=== PATIENT | female | born 1930 | race Caucasian/White ===

== ENCOUNTER 2017-01-26 12:26 | Emergency (ER) | payer MEDICARE ==
--- NOTE | 2017-01-26 13:57 | EDM.PDOC ---
[id number] 4d HIGH BLOOD PRESSURE Time Seen by Provider: 01/26/17 13:30 Source of Information: Reports: Patient, Family History Limitations: Reports: No Limitations - History of Present Illness INITIAL COMMENTS - FREE TEXT/NARRATIVE: 86-year-old female sent over from the clinic with some vague chest pressure, hypertension and noncompliance. She is a new patient to the clinic, her blood pressure is running around 200 systolic. She was sent over to the emergency room for some baseline lab and if that is okay she can recheck in the clinic in 3 days. She looks very stable but her first blood pressure was 190/100. No shortness of breath, oxygen saturations are normal. She does have an occasional cough. Onset: Gradual Severity: Mild Associated Symptoms: Reports: Chest Pain (Mild intermittent discomfort, brief sharp pains in the epigastric area), Cough, Shortness of Breath. Denies: Nausea /Vomiting - Related Data Allergies Allergy/AdvReac Type Severity Reaction Status Date / Time No Known Allergies Allergy Verified 01/26/17 13:23 Home Meds: Home Meds NK [No Known Home Meds] 06/20/15 [History] Past Medical History HEENT History: Reports: Impaired Vision Cardiovascular History: Reports: Hypertension Respiratory History: Reports: Asthma [employer] CONS[employer]ANT History: Reports: Social & Family History - Tobacco Use Smoking Status *Q: Never Smoker Used Tobacco, but Quit: Yes Month Tobacco Last Used: 0 Second Hand Smoke Exposure: Yes - Recreational Drug Use Recreational Drug Use: No ED ROS GENERAL - Review of Systems Review Of Systems: See Below Constitutional: Denies: Fever, Chills HEENT: Denies: No Symptoms Respiratory: Reports: Shortness of Breath, Cough Cardiovascular: Reports: Chest Pain. Denies: Palpitations GI/Abdominal: Reports: Abdominal Pain (Epigastric area intermittent and brief pains that are sharp) : Reports: No Symptoms Skin: Reports: No Symptoms ED EXAM, GENERAL - Physical Exam Exam: See Below Exam Limited By: No Limitations General Appearance: Alert, No Apparent Distress Head: Atraumatic Respiratory/Chest: No Respiratory Distress, Lungs Clear Cardiovascular: Regular Rate, Rhythm GI/Abdominal: Soft, Non-Tender Neurological: Alert, Oriented Psychiatric: Normal Affect, Normal Mood Skin Exam: Warm, Dry EKG INTERPRETATION Rhythm: NSR Course - Vital Signs Last Recorded V/S: Last Vital Signs Temp 97.2 F 01/26/17 13:21 Pulse 85 01/26/17 15:07 Resp 18 01/26/17 13:21 BP 133/62 01/26/17 15:07 Pulse Ox 95 01/26/17 13:21 - Orders/Labs/Meds Labs: Laboratory Tests 01/26/17 01/26/17 Range/Units 13:52 13:52 WBC 9.5 (4.5-11.0) K/uL RBC 4.17 (3.30-5.50) M/uL Hgb 12.9 (12.0-15.0) g/dL Hct 40.3 (36.0-48.0) % MCV 97 (80-98) fL MCH 31 (27-31) pg MCHC 32 (32-36) % Plt Count 264 (150-400) K/uL Neut % (Auto) 60 (36-66) % Lymph % (Auto) 24 (24-44) % [place] % (Auto) 9 H (2-6) % Eos % (Auto) 6 H (2-4) % Baso % (Auto) 1 (0-1) % Sodium 137 L (140-148) mmol/L Potassium 4.2 (3.6-5.2) mmol/L Chloride 100 (100-108) mmol/L Carbon Dioxide 33 H (21-32) mmol/L Anion Gap 8.2 (5.0-14.0) mmol/L BUN 12 (7-18) mg/dL Creatinine 1.3 H (0.6-1.0) mg/dL Est Cr Clr Drug Dosing 25.70 mL/min Estimated GFR (MDRD) 39 L (>60) Glucose 149 H (74-106) mg/dL Calcium 8.9 (8.5-10.1) mg/dL Total Bilirubin 0.8 (0.2-1.0) mg/dL AST 13 L (15-37) U/L ALT 17 (12-78) U/L Alkaline Phosphatase 98 (46-116) U/L Troponin I < 0.017 (0.000-0.056) ng/mL Total Protein 7.9 (6.4-8.2) g/dL Albumin 3.5 (3.4-5.0) g/dL Globulin 4.4 H (2.3-3.5) g/dL Albumin/Globulin Ratio 0.8 L (1.2-2.2) Meds: Medications Discontinued Medications Generic Name Dose Route Start Last Admin Trade Name Nikki PRN Reason Stop Dose Admin Metoprolol Tartrate 50 mg 01/26/17 14:30 01/26/17 14:43 Lopressor PO 01/26/17 14:31 50 mg ONETIME ONE Administration Nitroglycerin 0.4 mg 01/26/17 14:30 01/26/17 14:44 Nitrostat SL 01/26/17 14:31 0.4 mg ONETIME ONE Administration - Re-Assessments/Exams Free Text/Narrative Re-Assessment/Exam: 01/26/17 14:43 EKG from the clinic was reviewed that showed normal sinus rhythm, a CBC CMP and troponin were added. These returned very reassuring, troponin was 0, CBC normal and the CMP revealing only mild renal insufficiency. Patient was given 25 mg of Lopressor and 1 sublingual nitroglycerin to decrease her blood pressure below 180 systolic and will be started on chlorthalidone 25 mg daily and was given one month's supply. She will see Dr. Gustafson in 3 Days. 01/26/17 14:56 On discharge the patient's blood pressure was 133/62. Departure - Departure Time of Disposition: 15:12 Disposition: Home, Self-Care 01 Condition: Good Clinical Impression: Atypical chest pain Hypertension Qualifiers: Hypertension type: essential hypertension Qualified Code(s): I10 - Essential ( primary) hypertension - Discharge Information Instructions: Nonspecific Chest Pain, Hypertension, [id number] Referrals: PCP,None [Primary Care Provider] - Forms: ED Department Discharge Care Plan Goals: Take chlorthalidone once daily as directed, starting today. Recheck with Dr. Gustafson Wednesday. Call the clinic tomorrow to let them know you are planning on coming, they will tell you what time. Return sooner if worsening or concerns.
--- NOTE | 2017-01-26 14:21 | CR ---
Chest 2V HISTORY: dyspnea COMPARISON: 06/20/2015 FINDINGS: Lungs appear clear and normally aerated. Borderline cardiomegaly is stable. Epicardial fat and can b e seen at the right cardiophrenic angle. No vascular redistribution or pleural fluid can be seen. Jan ny structures and soft tissues are unremarkable. IMPRESSION: Borderline cardiomegaly without evidence for decompensation. No acute chest abnormality or significa nt interval change is identified.
[2017-01-26] MEDS ORDERED: Nitroglycerin 0.4 MG Tab.SL SL ONE (14:30)
[2017-01-26] MEDS ORDERED: Metoprolol Tartrate 50 MG Tab PO ONE (14:30)
[2017-01-26 15:07] VITALS: BP 133/62
== END 2017-01-26 15:12 | disposition home or self-care (01) ==
LOC: JP.ED 12:26
DX: R07.89 Other chest pain (principal); I10 Essential (primary) hypertension; J45.909 Unspecified asthma, uncomplicated
CPT/HCPCS: 36415; 71020; 80053; 84484; 85025; 99284; A9270

== ENCOUNTER 2018-11-07 11:32 | Emergency (ER) | payer MEDICARE ==
[2018-11-07] MEDS ORDERED: Sodium Chloride 0.9% 10 ML Syringe FLUSH PRN (11:48)
[2018-11-07 11:51] VITALS: BP 153/58
--- NOTE | 2018-11-07 11:55 | EDM.PDOC ---
ED HPI GENERAL MEDICAL PROBLEM - General Chief Complaint: Neurological Problem Stated Complaint: INPROGESS OF STRESS TEST SENT TO ER Time Seen by Provider: 11/07/18 11:40 Source of Information: Reports: Family, RN History Limitations: Reports: Uncooperative - History of Present Illness INITIAL COMMENTS - FREE TEXT/NARRATIVE: Simona is an 88 year old female, presents to the ED today from cardiac clinic after having neurological complaints during her stress test. Patient c/o blurry vision twice during preparation. Patient then would not speak when she had been speaking the entire time prior. Patient had a right facial droop per RN. Patient arrives here with droopy right eyelid, daughter states that is not new for patient. Patient denies pain other than the back of her head where she reported she fell a couple of days ago, daughter whom patient lives with states this is not accurate either. Patient is speaking sentences on arrival. Patient reported to be hypertensive initially at cardiology clinic, this seems to have stabilized here. Patient's IV did infiltrate with Lexiscan administration. I spoke with patient's daughter at length that reports patient has a hx of drinking ETOH/abuse for many years with strong mental health hx, shock therapy years ago, it is not unusual for patient to fake symptoms per her daughter to get attention, most often this happens when patient leaves the house. Onset: Today, Sudden - Related Data Allergies Allergy/AdvReac Type Severity Reaction Status Date / Time No Known Allergies Allergy Verified 11/07/18 11:57 Home Meds: Home Meds Albuterol Sulfate [Proair Hfa] 1 - 2 puff INH Q4HR PRN 11/04/18 [History] Aspirin [Halfprin] 81 mg PO DAILY 11/04/18 [History] Carvedilol 1 tab PO BID 11/04/18 [History] Chlorthalidone 25 mg PO DAILY 11/04/18 [History] amLODIPine Besylate [Amlodipine Besylate] 5 mg PO BID 11/04/18 [History] atorvaSTATin Calcium [Lipitor] 20 mg PO DAILY 11/04/18 [History] Past Medical History HEENT History: Reports: Impaired Vision Cardiovascular History: Reports: Hypertension Respiratory History: Reports: Asthma [employer] History: Reports: ED ROS GENERAL - Review of Systems Review Of Systems: Unable To Obtain ED EXAM, NEURO - Physical Exam Exam: See Below Exam Limited By: Uncooperative General Appearance: Alert, WD/WN, No Apparent Distress Eye Exam: Bilateral Eye: EOMI, PERRL Nose: Normal Inspection Throat/Mouth: Normal Oropharynx Head Exam: Atraumatic Neck: Normal Inspection, Supple, Non-Tender Respiratory/Chest: No Respiratory Distress, Lungs Clear, Normal Breath Sounds Cardiovascular: Normal Peripheral Pulses, Regular Rate, Rhythm, No Murmur GI/Abdominal: Normal Bowel Sounds, Soft, Non-Tender, Hernia (brynn-umbilical, easily reducible soft) Neurological: Alert, Other (smile intact, EOM's intact, strength to UE's equal, no arm drift, patient states she cannot move right leg off of bed, however right plantarflexion strength intact.) DTR: 2+: Patella (R), Patella (L) Extremities: Normal Inspection Psychiatric: Depressed Mood, Other (When asked to smile, "what is there to smile about"?) Skin Exam: Warm, Dry, Other (areas of scabs from patient picking her age spots ( per daughter)) Course - Vital Signs Last Recorded V/S: Last Vital Signs Temp 37.1 C 11/07/18 11:39 Pulse 86 11/07/18 11:39 Resp 16 11/07/18 11:39 BP 153/58 H 11/07/18 11:39 Pulse Ox 95 11/07/18 11:39 Simona is an 88 year old female hx of early stages of Alzheimers who presents today from stress test for concerns of stroke type symptoms. Please refer to HPI and focused exam. Patient arrives here hemodynamically stable and afebrile. She is not in any acute distress, no neuro focal deficits on exam, patient states she can't move right leg off of the bed however a few minutes later she lifted right leg and crossed it over her left leg with no problem at all. Blood work today shows a normal white count and stable HGB. Panel returns with elevated Creatinine and BUN, patient was given a 500 ml bolus of NS. Troponin undetectable. CT scan of head is essentially degraded by motion artificact with questionable ill defnied foci of decreased attenuation in the superior right frontal lobe which may be related to regional artifact with no other significant findings. Given that patient's symptoms initially were right sided it is unlikely that this is an acute pathological finding. [id number] went to speak with patient, she is alert and oriented, she got up and ambulated to the bathroom with stand by assist, she moved all 4 extremities without no difficulty, she offers no complaints. Patient was given a lunch tray which she at well and I feel at this time she is stable to be discharged back home with her daughter. Given daughter's hx of patient this may have been an act on patient's behalf which given her behavior here is most likely. TIA is on the differential although I feel this is less likely. Patient has no infectious etiology or concerns on exam. I would like patient to stay well hydrated and follow up with her PCP later this week to have her kidney function rechecked as well as touch base with ordering provider of stress test to discuss moving forward with regard to that. Reasons to return to the ED were discussed with patient and daughter, they are agreeable to plan of care and patient was discharged in stable condition with her daughter driving. - Orders/Labs/Meds Orders: Active Orders 24 hr Category Date Time Status Peripheral IV Care [RC] . DIRECTED Care 11/07/18 11:48 Active Sodium Chloride 0.9% [Normal Saline] 1,000 ml Med 11/07/18 13:39 Active IV .BOLUS Sodium Chloride 0.9% [Saline Flush] Med 11/07/18 11:48 Active 10 ml FLUSH ASDIRECTED PRN Peripheral IV Insertion Adult [OM.PC] Routine Oth 11/07/18 11:48 Ordered Medication Orders Sodium Chloride (Normal Saline) 1,000 mls @ 500 mls/hr IV .BOLUS ONE Stop: 11/07/18 15:38 Sodium Chloride (Saline Flush) 10 ml FLUSH ASDIRECTED PRN PRN Reason: Keep Vein Open Last Admin: 11/07/18 11:54 Dose: 10 ml Labs: Laboratory Tests 11/07/18 11/07/18 Range/Units 12:00 12:00 WBC 8.8 (4.5-11.0) K/uL RBC 3.81 (3.30-5.50) M/uL Hgb 12.0 (12.0-15.0) g/dL Hct 37.4 (36.0-48.0) % MCV 98 (80-98) fL MCH 32 H (27-31) pg MCHC 32 (32-36) % Plt Count 210 (150-400) K/uL Neut % (Auto) 56 (36-66) % Lymph % (Auto) 29 (24-44) % [place] % (Auto) 10 H (2-6) % Eos % (Auto) 4 (2-4) % Baso % (Auto) 1 (0-1) % Sodium 138 L (140-148) mmol/L Potassium 4.7 (3.6-5.2) mmol/L Chloride 100 (100-108) mmol/L Carbon Dioxide 32 (21-32) mmol/L Anion Gap 10.7 (5.0-14.0) mmol/L BUN 24 H D (7-18) mg/dL Creatinine 1.5 H (0.6-1.0) mg/dL Est Cr Clr Drug Dosing 21.44 mL/min Estimated GFR (MDRD) 33 L (>60) Glucose 124 H (74-106) mg/dL Calcium 9.4 (8.5-10.1) mg/dL Total Bilirubin 1.0 (0.2-1.0) mg/dL AST 16 (15-37) U/L ALT 20 (12-78) U/L Alkaline Phosphatase 116 (46-116) U/L Troponin I < 0.017 (0.000-0.056) ng/mL Total Protein 7.8 (6.4-8.2) g/dL Albumin 3.7 (3.4-5.0) g/dL Globulin 4.1 H (2.3-3.5) g/dL Albumin/Globulin Ratio 0.9 L (1.2-2.2) Meds: Medications Generic Name Dose Route Start Last Admin Trade Name Freq PRN Reason Stop Dose Admin Sodium Chloride 1,000 mls @ 500 mls/hr 11/07/18 13:39 Normal Saline IV 11/07/18 15:38 .BOLUS ONE Sodium Chloride 10 ml 11/07/18 11:48 11/07/18 11:54 Saline Flush FLUSH 10 ml ASDIRECTED PRN Administration Keep Vein Open Departure - Departure Time of Disposition: 14:30 Disposition: Home, Self-Care 01 Condition: Fair Clinical Impression: Feared condition not demonstrated, Elevated serum creatinine, Dehydration - Discharge Information Instructions: Dehydration, Adult, [id number] Referrals: Angel Rojas DIRECTOR OF CONSERVATION [Primary Care Provider] - Forms: ED Department Discharge Additional Instructions: Keep well hydrated Follow up in clinic for recheck of kidney function next week sometime. Touch base with provider who ordered the stress today for further instruction - My Orders Last 24 Hours: My Active Orders 11/07/18 11:48 Peripheral IV Care [RC] . DIRECTED Sodium Chloride 0.9% [Saline Flush] 10 ml FLUSH ASDIRECTED PRN Peripheral IV Insertion Adult [OM.PC] Routine 11/07/18 13:39 Sodium Chloride 0.9% [Normal Saline] 1,000 ml IV .BOLUS - Assessment/Plan Last 24 Hours: My Active Orders 11/07/18 11:48 Peripheral IV Care [RC] . DIRECTED Sodium Chloride 0.9% [Saline Flush] 10 ml FLUSH ASDIRECTED PRN Peripheral IV Insertion Adult [OM.PC] Routine 11/07/18 13:39 Sodium Chloride 0.9% [Normal Saline] 1,000 ml IV .BOLUS
--- NOTE | 2018-11-07 13:15 | CRLCT ---
INDICATION: Stroke protocol TECHNIQUE: CT head without contrast. COMPARISON: None available FINDINGS: The study is degraded by motion artifact. There is age-related cortical atrophy with proportionate ventriculomegaly. There is no mass effect or midline shift. White matter hypodensities are suggestive of chronic small vessel ischemic changes. Apparent ill-defined foci of decreased attenuation in the superior right frontal lobe may be related to regional artifact. Otherwise, there is no gross loss of hunter-white differentiation. There is no definite evidence of a gross acute intracranial hemorrhage, given the limitations. No acute calvarial fracture is seen. Mild paranasal sinus mucosal thickening is noted. There is apparent opacification of few left mastoid air cells. Post cataract surgery changes are seen. IMPRESSION: A motion degraded study. Ill-defined foci of decreased attenuation in the superior right frontal lobe which may be related to regional artifact, otherwise no definite loss of hunter-white differentiation or a gross acute intracranial hemorrhage. Followup with better sedation and technique, as clinically indicated. Dictated by Tanmay Pratt MD @ 11/07/2018 1:13:12 PM Please note that all CT scans at this facility use dose modulation, iterative reconstruction, and/or weight-based dosing when appropriate to reduce radiation dose to as low as reasonably achievable. Dictated by: Tanmay Pratt MD @ 11/07/2018 13:13:16 (Electronically Signed)
[2018-11-07] MEDS ORDERED: Sodium Chloride 0.9% 1,000 ML IV ONE (13:39)
== END 2018-11-07 15:05 | disposition home or self-care (01) ==
LOC: JP.ED 11:32
DX: E86.0 Dehydration (principal); R79.89 Other specified abnormal findings of blood chemistry; I10 Essential (primary) hypertension; Z79.82 Long term (current) use of aspirin; Z79.899 Other long term (current) drug therapy; R07.9 Chest pain, unspecified; I25.10 Atherosclerotic heart disease of native coronary artery without angina pectoris
CPT/HCPCS: 36415; 70450; 80053; 84484; 85025; 96360; 99283; 99284; J7030; 78451; 93017; A9500; J2785

== ENCOUNTER 2019-07-31 15:58 | Emergency (ER) | payer MEDICARE ==
[2019-07-31 16:17] VITALS: BP 129/75; PULSE 96
[2019-07-31] MEDS ORDERED: Sodium Chloride 0.9% 10 ML Syringe FLUSH PRN (16:58)
[2019-07-31] MEDS ORDERED: Sodium Chloride 0.9% 1,000 ML IV SCH (17:00)
--- NOTE | 2019-07-31 17:07 | EDM.PDOC ---
ED HPI GENERAL MEDICAL PROBLEM - General Chief Complaint: Lower Extremity Injury/Pain Stated Complaint: MEDICAL VIA NORTH Time Seen by Provider: 07/31/19 16:34 Source of Information: Reports: Patient, RN Notes Reviewed History Limitations: Reports: No Limitations - History of Present Illness INITIAL COMMENTS - FREE TEXT/NARRATIVE: 88-year-old female presents emergency department today via EMS for increasing weakness and a fall at home. There is some concern about safety at [place] vulnerable [place] she does admit to falling unclear if it was last night or this morning she does complain of right hip pain excruciating pain with any movement of that hip unknown duration of time on the ground. She also complains of some chest pain as well. States she believes she passed out last night. Right Hip Pain Score (Numeric/FACES): 3 - Related Data Allergies Allergy/AdvReac Type Severity Reaction Status Date / Time No Known Allergies Allergy Verified 07/31/19 16:22 Home Meds: Home Meds Albuterol Sulfate [Proair Hfa] 1 - 2 puff INH Q4HR PRN 11/04/18 [History] Aspirin [Halfprin] 81 mg PO DAILY 11/04/18 [History] Chlorthalidone 25 mg PO DAILY 11/04/18 [History] amLODIPine Besylate [Amlodipine Besylate] 5 mg PO BID 11/04/18 [History] atorvaSTATin Calcium [Lipitor] 20 mg PO DAILY 11/04/18 [History] carvediloL [Carvedilol] 1 tab PO BID 11/04/18 [History] Past Medical History HEENT History: Reports: Impaired Vision Cardiovascular History: Reports: Hypertension, Other (See Below) Other Cardiovascular History: COD Respiratory History: Reports: Asthma Gastrointestinal History: Reports: Cholelithiasis 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: Endocrine/Metabolic History: Reports: Obesity/BMI 30+ Hematologic History: Reports: Anemia - Past Surgical History GI Surgical History: Reports: Appendectomy, Cholecystectomy Social & Family History - Tobacco Use Smoking Status *Q: Never Smoker Second Hand Smoke Exposure: No - Caffeine Use Caffeine Use: Reports: Coffee, Tea - Recreational Drug Use Recreational Drug Use: No Review of Systems - Review of Systems Review Of Systems: See Below Constitutional: Reports: No Symptoms Eyes: Reports: No Symptoms Ears: Reports: No Symptoms Nose: Reports: No Symptoms Mouth/Throat: Reports: Other (Dry) Respiratory: Reports: Shortness of Breath Cardiovascular: Reports: Chest Pain GI/Abdominal: Reports: No Symptoms Genitourinary: Reports: Incontinence Musculoskeletal: Reports: Joint Pain Skin: Reports: No Symptoms Neurological: Reports: No Symptoms ED EXAM, GENERAL - Physical Exam Exam: See Below Free Text/Narrative:: General: Female, not in any distress, alert and oriented x3 HEENT: head is atraumatic normocephalic, eyes pupils equal round reactive to light, sclera clear no conjunctivitis appreciated. Ears tympanic membranes clear and hunter landmarks and light reflex are present bilaterally canals are clear. Nose no septal deviation, nares are clear, no blood present. Mouth mucosa is dry and pink no erythema or exudate noted in soft palate, tongue is midline uvula is midline, dentition is intact. Neck: Supple no thyromegaly no tracheal deviation. Nodes: Cervical nodes subclavicular nodes nontender no palpable lymphadenopathy noted. Lungs: clear to auscultation bilaterally with symmetrical respirations, no adventitious noise appreciated. CV: Regular rate and rhythm S1 and S2 appreciated no murmurs rubs or gallops noted. Tenderness to palpation around the chest predominantly on the left side Abdomen: Soft, nontender, no palpable masses or organomegaly appreciated, no distention no guarding bowel sounds are present, [scars ]. Neuro: GCS 15 Skin: Warm and dry, intact Extremities: No lower extremity edema appreciated, pedal pulse is +2. Right hip is rotated outward with knee flexed very tender to any type of movement or palpation around the hip no tenderness to the left hip Course - Vital Signs Last Recorded V/S: Last Vital Signs Temp 95.4 F 07/31/19 16:17 Pulse 96 07/31/19 16:17 Resp 11 L 07/31/19 16:17 BP 129/75 07/31/19 16:17 Pulse Ox 94 L 07/31/19 16:17 - Orders/Labs/Meds Orders: Active Orders 24 hr Category Date Time Status EKG Documentation Completion [RC] ASDIRECTED Care 07/31/19 17:00 Active Peripheral IV Care [RC] . DIRECTED Care 07/31/19 16:59 Active Chest 1V Frontal [CR] Urgent Exams 07/31/19 16:58 Taken Hip Min 1V Rt [CR] Stat Exams 07/31/19 17:01 Taken OCCULT BLOOD,GASTRIC FLD [BF] Stat Lab 07/31/19 16:49 Ordered UA W/MICROSCOPIC [URIN] Urgent Lab 07/31/19 16:58 Ordered Sodium Chloride 0.9% [Normal Saline] 1,000 ml Med 07/31/19 17:00 Active IV ASDIRECTED Sodium Chloride 0.9% [Saline Flush] Med 07/31/19 16:58 Active 10 ml FLUSH ASDIRECTED PRN Peripheral IV Insertion Adult [OM.PC] Stat Oth 07/31/19 16:58 Ordered EKG 12 Lead [EK] Urgent Ther 07/31/19 16:58 Ordered Medication Orders Sodium Chloride (Normal Saline) 1,000 mls @ 500 mls/hr IV ASDIRECTED FLOR Last Admin: 07/31/19 17:52 Dose: 500 mls/hr Sodium Chloride (Saline Flush) 10 ml FLUSH ASDIRECTED PRN PRN Reason: Keep Vein Open Last Admin: 07/31/19 17:53 Dose: 10 ml Labs: Laboratory Tests 07/31/19 07/31/19 07/31/19 Range/Units 17:30 17:30 17:30 WBC 18.3 H (4.5-11.0) K/uL RBC 3.30 (3.30-5.50) M/uL Hgb 10.3 L (12.0-15.0) g/dL Hct 32.5 L (36.0-48.0) % MCV 99 H (80-98) fL MCH 31 (27-31) pg MCHC 32 (32-36) % Plt Count 237 (150-400) K/uL Neut % (Auto) 87 H (36-66) % Lymph % (Auto) 5 L (24-44) % [place] % (Auto) 8 H (2-6) % Eos % (Auto) 0 L (2-4) % Baso % (Auto) 0 (0-1) % Sodium 144 (140-148) mmol/L Potassium 4.0 (3.6-5.2) mmol/L Chloride 107 (100-108) mmol/L Carbon Dioxide 19 L (21-32) mmol/L Anion Gap 22.0 H (5.0-14.0) mmol/L BUN 31 H (7-18) mg/dL Creatinine 1.9 H (0.6-1.0) mg/dL Est Cr Clr Drug Dosing 17.67 mL/min Estimated GFR (MDRD) 25 L (>60) Glucose 191 H (74-106) mg/dL Lactic Acid (0.4-2.0) mmol/L Calcium 8.4 L (8.5-10.1) mg/dL Total Bilirubin 0.7 (0.2-1.0) mg/dL AST 19 (15-37) U/L ALT 19 (12-78) U/L Alkaline Phosphatase 83 (46-116) U/L Creatine Kinase 304 H (26-192) U/L Troponin I < 0.017 (0.000-0.056) ng/mL Total Protein 7.5 (6.4-8.2) g/dL Albumin 3.5 (3.4-5.0) g/dL Globulin 4.0 H (2.3-3.5) g/dL Albumin/Globulin Ratio 0.9 L (1.2-2.2) 07/31/19 Range/Units 17:30 WBC (4.5-11.0) K/uL RBC (3.30-5.50) M/uL Hgb (12.0-15.0) g/dL Hct (36.0-48.0) % MCV (80-98) fL MCH (27-31) pg MCHC (32-36) % Plt Count (150-400) K/uL Neut % (Auto) (36-66) % Lymph % (Auto) (24-44) % [place] % (Auto) (2-6) % Eos % (Auto) (2-4) % Baso % (Auto) (0-1) % Sodium (140-148) mmol/L Potassium (3.6-5.2) mmol/L Chloride (100-108) mmol/L Carbon Dioxide (21-32) mmol/L Anion Gap (5.0-14.0) mmol/L BUN (7-18) mg/dL Creatinine (0.6-1.0) mg/dL Est Cr Clr Drug Dosing mL/min Estimated GFR (MDRD) (>60) Glucose (74-106) mg/dL Lactic Acid 4.8 H (0.4-2.0) mmol/L Calcium (8.5-10.1) mg/dL Total Bilirubin (0.2-1.0) mg/dL AST (15-37) U/L ALT (12-78) U/L Alkaline Phosphatase (46-116) U/L Creatine Kinase (26-192) U/L Troponin I (0.000-0.056) ng/mL Total Protein (6.4-8.2) g/dL Albumin (3.4-5.0) g/dL Globulin (2.3-3.5) g/dL Albumin/Globulin Ratio (1.2-2.2) Meds: Medications Generic Name Dose Route Start Last Admin Trade Name Freq PRN Reason Stop Dose Admin Sodium Chloride 1,000 mls @ 500 mls/hr 07/31/19 17:00 07/31/19 17:52 Normal Saline IV 500 mls/hr ASDIRECTED FLOR Administration Sodium Chloride 10 ml 07/31/19 16:58 07/31/19 17:53 Saline Flush FLUSH 10 ml ASDIRECTED PRN Administration Keep Vein Open Discontinued Medications Generic Name Dose Route Start Last Admin Trade Name Freq PRN Reason Stop Dose Admin Fentanyl 50 mcg 07/31/19 17:10 07/31/19 17:58 Sublimaze IVPUSH 07/31/19 17:11 50 mcg ONETIME ONE Administration Ondansetron HCl 4 mg 07/31/19 17:10 07/31/19 17:55 Zofran IVPUSH 07/31/19 17:11 4 mg ONETIME ONE Administration Departure - Departure Time of Disposition: 18:34 Disposition: DC/Tfer to Acute Hospital 02 Condition: Fair Clinical Impression: Fracture of neck of femur, hip - Discharge Information Referrals: Angel Rojas, COLD ROLL OPERATOR [Primary Care Provider] - Forms: ED Department Discharge Sepsis Event Note - Evaluation Sepsis Screening Result: No Definite Risk - Focused Exam Vital Signs: Vital Signs Temp Pulse Resp BP Pulse Ox 07/31/19 16:17 95.4 F 96 11 L 129/75 94 L 07/31/19 16:00 95.4 F 96 11 L 129/75 94 L Date Exam was Performed: 07/31/19 Time Exam was Performed: 18:32 - My Orders Last 24 Hours: My Active Orders 07/31/19 16:49 OCCULT BLOOD,GASTRIC FLD [BF] Stat 07/31/19 16:58 Chest 1V Frontal [CR] Urgent UA W/MICROSCOPIC [URIN] Urgent Sodium Chloride 0.9% [Saline Flush] 10 ml FLUSH ASDIRECTED PRN Peripheral IV Insertion Adult [OM.PC] Stat EKG 12 Lead [EK] Urgent 07/31/19 16:59 Peripheral IV Care [RC] . DIRECTED 07/31/19 17:00 EKG Documentation Completion [RC] ASDIRECTED Sodium Chloride 0.9% [Normal Saline] 1,000 ml IV ASDIRECTED 07/31/19 17:01 Hip Min 1V Rt [CR] Stat - Assessment/Plan Last 24 Hours: My Active Orders 07/31/19 16:49 OCCULT BLOOD,GASTRIC FLD [BF] Stat 07/31/19 16:58 Chest 1V Frontal [CR] Urgent UA W/MICROSCOPIC [URIN] Urgent Sodium Chloride 0.9% [Saline Flush] 10 ml FLUSH ASDIRECTED PRN Peripheral IV Insertion Adult [OM.PC] Stat EKG 12 Lead [EK] Urgent 07/31/19 16:59 Peripheral IV Care [RC] . DIRECTED 07/31/19 17:00 EKG Documentation Completion [RC] ASDIRECTED Sodium Chloride 0.9% [Normal Saline] 1,000 ml IV ASDIRECTED 07/31/19 17:01 Hip Min 1V Rt [CR] Stat Plan: Assessment Acuity = acute Site and laterality = right hip fracture complicating the patient with unknown history of downtime on the ground Etiology = secondary to a fall Manifestations = pain Location of injury = Home Lab values = WBC elevated 18.3 consistent leukocytosis hemoglobin low at 10.3 consistent normochromic anemia creatinine elevated 1.9 consistent with chronic renal failure stage G4 lactic acid elevated 4.8 consistent lactic acidosis creatinine kinase elevated 304 troponin was negative chest x-ray I did review films myself I cannot appreciate any acute process, the official read from radiology is pending, plain film portable right hip reveals fracture at the shaft Plan Call discussed case Dr. Stratton [facility] physician at 1810 he kindly excepted the patient in transport she will be transported via EMS ground thus far she has received 1 L fluids, 50 mics of fentanyl and 4 mg Zofran Mckeon catheter has been placed This note was dictated using [employer] voice recognition software please call with any questions on syntax or grammar.
[2019-07-31] MEDS ORDERED: fentaNYL 100 MCG/2 ML SDV IVPUSH ONE (17:10)
[2019-07-31] MEDS ORDERED: Ondansetron 4 MG/2 ML SDV IVPUSH ONE (17:10)
[2019-07-31] MEDS ORDERED: HYDROmorphone 0.5 MG/0.5 ML Syringe IVPUSH ONE (19:33)
--- NOTE | 2019-08-01 08:40 | CR ---
CHEST: Portable 07/31/2019 at 5:46 PM CLINICAL HISTORY:Fall, pain COMPARISON:2017 FINDINGS: The heart is mildly enlarged. Pulmonary vascularity is normal. Lungs are generally hyperaerated. There are atherosclerotic changes in the aorta. There is some elevation of the right hemidiaphragm which is a change since 2017. There is a hiatal hernia. Impression:. Mild cardiomegaly No acute cardiopulmonary process
--- NOTE | 2019-08-01 08:41 | CR ---
Hip Min 1V Rt CLINICAL HISTORY: Pain FINDINGS: There is a displaced subtrochanteric fracture of the right femur with abduction of the proximal aspect IMPRESSION: Displaced subtrochanteric fracture
== END 2019-07-31 19:50 ==
LOC: JP.ED 15:58
DX: S72.091A Other fracture of head and neck of right femur, initial encounter for closed fracture (principal); I10 Essential (primary) hypertension; E66.9 Obesity, unspecified; J45.909 Unspecified asthma, uncomplicated; Z79.899 Other long term (current) drug therapy; Z79.82 Long term (current) use of aspirin; W19.XXXA Unspecified fall, initial encounter; Y92.002 Bathroom of unspecified non-institutional (private) residence as the place of occurrence of the external cause
CPT/HCPCS: 36415; 51702; 71045; 73501; 80053; 81001; 82550; 83605; 84484; 85025; 93005; 93010; 96361; 96374; 96375; 99284; 99285; J1170; J2405; J3010; J7030

== ENCOUNTER 2019-09-22 17:45 | Emergency (ER) | payer MEDICARE ==
[2019-09-22 18:31] VITALS: BP 104/47; PULSE 64
--- NOTE | 2019-09-22 18:32 | EDM.PDOC ---
ED HPI GENERAL MEDICAL PROBLEM - General Chief Complaint: Chest Pain Stated Complaint: MEDICAL VIA [facility] Time Seen by Provider: 09/22/19 18:00 Source of Information: Reports: Patient, EMS, [facility] Records History Limitations: Reports: No Limitations - History of Present Illness INITIAL COMMENTS - FREE TEXT/NARRATIVE: 88-year-old female with apparent known coronary artery disease, was told 2 years ago she needed a bypass but deferred due to family issues at the time. She has been in a assisted here in [place] for the last year and is having worsening chest pain with activity and more frequent falls and syncope. She was evaluated 2 weeks ago and had no acute findings, but she has fallen several times and is having chest pain almost daily and today had significant pain radiating into her shoulder and jaw with shortness of breath and another syncopal episode causing her to hit her face on the ground sustaining a forehead laceration and a nasal injury. Her chest pain resolved by the time she got to the emergency room, EKG was normal. She is a DNR, but would except a cardiac evaluation and even surgery if necessary because she "cannot live like this". Onset: Sudden Duration: Minutes: (Typically last 10 to 20 minutes) Location: Reports: Chest Quality: Reports: Pressure, Sharp Worsens with: Reports: Other (Seems to come on with activity) Associated Symptoms: Reports: Shortness of Breath, Syncope. Denies: Nausea/ Vomiting Chest Pain Score (Numeric/FACES): 8 - Related Data Allergies Allergy/AdvReac Type Severity Reaction Status Date / Time No Known Allergies Allergy Verified 07/31/19 16:22 Home Meds: Home Meds Albuterol Sulfate [Proair Hfa] 1 - 2 puff INH Q4HR PRN 11/04/18 [History] Aspirin [Halfprin] 81 mg PO DAILY 11/04/18 [History] amLODIPine Besylate [Amlodipine Besylate] 5 mg PO BID 11/04/18 [History] atorvaSTATin Calcium [Lipitor] 20 mg PO DAILY 11/04/18 [History] carvediloL [Carvedilol] 1 tab PO BID 11/04/18 [History] Acetaminophen [Tylenol Extra Strength] 1,000 mg PO TID PRN 09/22/19 [History] Divalproex Sodium [Depakote] 125 mg PO TID 09/22/19 [History] Docusate Sodium 100 mg PO BID PRN 09/22/19 [History] Ferrous Sulfate 325 mg PO DAILY 09/22/19 [History] traMADol [Ultram] 25 mg PO BID PRN 09/22/19 [History] Past Medical History HEENT History: Reports: Impaired Vision Cardiovascular History: Reports: Hypertension, Other (See Below) Other Cardiovascular History: COD Respiratory History: Reports: Asthma Gastrointestinal History: Reports: Cholelithiasis 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: Endocrine/Metabolic History: Reports: Obesity/BMI 30+ Hematologic History: Reports: Anemia - Past Surgical History GI Surgical History: Reports: Appendectomy, Cholecystectomy Social & Family History - Tobacco Use Smoking Status *Q: Never Smoker - Caffeine Use Caffeine Use: Reports: None - Recreational Drug Use Recreational Drug Use: No ED ROS GENERAL - Review of Systems Review Of Systems: See Below Constitutional: Denies: Fever, Chills HEENT: Reports: Other (Nasal bridge pain from recent fall) Respiratory: Reports: Shortness of Breath (During painful episodes) Cardiovascular: Reports: Chest Pain. Denies: Palpitations GI/Abdominal: Denies: Abdominal Pain, Nausea, Vomiting Musculoskeletal: Reports: Shoulder Pain (Left shoulder pain), Other (Recent hip fracture and repair) Skin: Reports: Other (Sustained a laceration to her forehead with this recent fall) Neurological: Reports: Dizziness. Denies: Headache Psychiatric: Reports: No Symptoms ED EXAM, GENERAL - Physical Exam Exam: See Below Exam Limited By: No Limitations General Appearance: Alert, No Apparent Distress Eye Exam: Bilateral Eye: EOMI Nose: Other (No deformity but there is some dried blood at the nares and tenderness to the nasal bone.) Head: Other (3 cm transverse laceration on the forehead which is Steri-Stripped appropriately) Neck: Supple, Non-Tender Respiratory/Chest: No Respiratory Distress, Lungs Clear Cardiovascular: Regular Rate, Rhythm GI/Abdominal: Soft, Non-Tender Extremities: Other (She does have lower extremity edema, right leg is slightly worse than the left) Neurological: Alert, Oriented Psychiatric: Normal Affect, Normal Mood Skin Exam: Warm, Dry, Other (Injury to the forehead as explained above) EKG INTERPRETATION Rhythm: NSR Course - Vital Signs Last Recorded V/S: Last Vital Signs Temp 95.9 F L 09/22/19 18:06 Pulse 64 09/22/19 18:07 Resp 19 09/22/19 18:06 BP 104/47 L 09/22/19 18:07 Pulse Ox 93 L 09/22/19 18:06 - Orders/Labs/Meds Orders: Active Orders 24 hr Category Date Time Status EKG Documentation Completion [RC] ASDIRECTED Care 09/22/19 18:22 Active EKG 12 Lead [EK] Routine Ther 09/22/19 18:21 Ordered Labs: Laboratory Tests 09/22/19 09/22/19 Range/Units 18:21 18:21 WBC 8.6 (4.5-11.0) K/uL RBC 3.03 L (3.30-5.50) M/uL Hgb 9.9 L (12.0-15.0) g/dL Hct 31.1 L (36.0-48.0) % MCV 103 H (80-98) fL MCH 33 H (27-31) pg MCHC 32 (32-36) % Plt Count 167 (150-400) K/uL Neut % (Auto) 56 (36-66) % Lymph % (Auto) 25 (24-44) % [place] % (Auto) 12 H (2-6) % Eos % (Auto) 7 H (2-4) % Baso % (Auto) 0 (0-1) % Sodium 141 (140-148) mmol/L Potassium 4.4 (3.6-5.2) mmol/L Chloride 101 (100-108) mmol/L Carbon Dioxide 30 (21-32) mmol/L Anion Gap 10.3 (5.0-14.0) mmol/L BUN 27 H (7-18) mg/dL Creatinine 1.3 H (0.6-1.0) mg/dL Est Cr Clr Drug Dosing 29.09 mL/min Estimated GFR (MDRD) 39 L (>60) Glucose 106 (74-106) mg/dL Calcium 9.0 (8.5-10.1) mg/dL Total Bilirubin 0.4 (0.2-1.0) mg/dL AST 12 L (15-37) U/L ALT 23 (12-78) U/L Alkaline Phosphatase 134 H (46-116) U/L Troponin I < 0.017 (0.000-0.056) ng/mL Total Protein 7.1 (6.4-8.2) g/dL Albumin 3.5 (3.4-5.0) g/dL Globulin 3.6 H (2.3-3.5) g/dL Albumin/Globulin Ratio 1.0 L (1.2-2.2) Meds: Medications Discontinued Medications Generic Name Dose Route Start Last Admin Trade Name Nikki PRN Reason Stop Dose Admin Aspirin 324 mg 09/22/19 19:31 09/22/19 19:38 Aspirin PO 09/22/19 19:32 324 mg ONETIME ONE Administration - Re-Assessments/Exams Free Text/Narrative Re-Assessment/Exam: 09/22/19 18:31 EKG is normal, pain is gone. Records were reviewed from previous work-up. A CBC, CMP and troponin were redrawn. Cardiac evaluation is likely going to be necessary because of the significant past history and escalating symptoms. 09/22/19 19:17 IMPRESSION: Left frontal scalp hematoma without fracture or intracranial hemorrhage. FINDINGS: Facial bones: Nondisplaced fracture present in the nasal bone. No other fracture or malalignment. Orbits and globes: Unremarkable. Globes are intact. No sign of intraorbital hemorrhage or emphysema. Sinuses: No acute or significant findings. Patient remained pain-free in the emergency room, CT results above. Troponin is negative. 09/22/19 19:34 Patient was given 324 mg of chewable aspirin, and phone consultation with [facility] was obtained and the patient was kindly accepted for transfer by Dr. Whitehead. Departure - Departure Time of Disposition: 20:30 Disposition: DC/Tfer to Other Clinical Impression: Angina pectoris, crescendo, Syncope and collapse Nasal bone fracture Qualifiers: Encounter type: initial encounter Fracture type: closed Qualified Code(s): S02.2XXA - Fracture of nasal bones, initial encounter for closed fracture Laceration of forehead Qualifiers: Encounter type: initial encounter Qualified Code(s): S01.81XA - Laceration without foreign body of other part of head, initial encounter - Discharge Information Referrals: PCP,None [Primary Care Provider] - Forms: ED Department Discharge Care Plan Goals: Patient will be transferred to [facility] for formal cardiology evaluation and additional work-up if necessary. Sepsis Event Note - Evaluation Sepsis Screening Result: No Definite Risk - Focused Exam Vital Signs: Vital Signs Temp Pulse Resp BP Pulse Ox 09/22/19 18:07 64 104/47 L 09/22/19 18:06 95.9 F L 67 19 128/54 L 93 L Date Exam was Performed: 09/22/19 Time Exam was Performed: 20:39 - My Orders Last 24 Hours: My Active Orders 09/22/19 18:21 EKG 12 Lead [EK] Routine 09/22/19 18:22 EKG Documentation Completion [RC] ASDIRECTED - Assessment/Plan Last 24 Hours: My Active Orders 09/22/19 18:21 EKG 12 Lead [EK] Routine 09/22/19 18:22 EKG Documentation Completion [RC] ASDIRECTED
--- NOTE | 2019-09-22 19:12 | CRLCT ---
INDICATION: Fall, head trauma TECHNIQUE: Head CT without contrast. COMPARISON: 11/07/2018 FINDINGS: CSF spaces: Within normal limits for age. Brain parenchyma and extra-axial spaces: There are nonspecific low attenuation white matter changes consistent with chronic microvascular disease. No sign of mass, hemorrhage, or midline shift. Skull base and calvarium: The visualized paranasal sinuses and mastoid air cells demonstrate no acute or significant findings. The visualized orbits are grossly unremarkable. No skull fractures. Left frontal scalp hematoma is present. IMPRESSION: Left frontal scalp hematoma without fracture or intracranial hemorrhage. Dictated by Emiliano Piña MD @ 09/22/2019 7:11:03 PM Dictated by: Emiliano Piña MD @ 09/22/2019 19:11:09 (Electronically Signed)
--- NOTE | 2019-09-22 19:16 | CRLCT ---
INDICATION: Facial injury TECHNIQUE: CT maxillofacial without contrast. COMPARISON: None FINDINGS: Facial bones: Nondisplaced fracture present in the nasal bone. No other fracture or malalignment. Orbits and globes: Unremarkable. Globes are intact. No sign of intraorbital hemorrhage or emphysema. Sinuses: No acute or significant findings. Soft tissues: Unremarkable. IMPRESSION: Nondisplaced fracture of the nasal bone. Remainder of the exam is unremarkable. Dictated by Emiliano Piña MD @ 09/22/2019 7:15:32 PM Dictated by: Emiliano Piña MD @ 09/22/2019 19:15:35 (Electronically Signed)
[2019-09-22] MEDS ORDERED: Aspirin 81 MG Tab.Chew PO ONE (19:31)
== END 2019-09-22 20:20 | disposition other institution (70) ==
LOC: JP.ED 17:45
DX: S02.2XXA Fracture of nasal bones, initial encounter for closed fracture (principal); S01.81XA Laceration without foreign body of other part of head, initial encounter; I20.9 Angina pectoris, unspecified; R55 Syncope and collapse; I10 Essential (primary) hypertension; E66.9 Obesity, unspecified; Z79.82 Long term (current) use of aspirin; Z79.899 Other long term (current) drug therapy; Z68.28 Body mass index [BMI] 28.0-28.9, adult; W19.XXXA Unspecified fall, initial encounter; Y92.129 Unspecified place in nursing home as the place of occurrence of the external cause
CPT/HCPCS: 36415; 70450; 70486; 80053; 84484; 85025; 93005; 99285; A9270

== ENCOUNTER 2019-10-27 00:44 | Emergency (ER) | payer MEDICARE ==
[2019-10-27 00:56] VITALS: BP 143/56; PULSE 64
--- NOTE | 2019-10-27 01:23 | EDM.PDOC ---
ED HPI GENERAL MEDICAL PROBLEM - General Chief Complaint: Chest Pain Stated Complaint: [facility] Time Seen by Provider: 10/27/19 01:00 Source of Information: Reports: Patient, EMS, RN History Limitations: Reports: No Limitations - History of Present Illness INITIAL COMMENTS - FREE TEXT/NARRATIVE: 89-year-old female from a local care home sent in to evaluate for chest pain. According to the nursing staff she has been complaining for the last 2 hours, however the patient says she has had pain for the last 4 days. It is painful to touch her left anterior chest and move the left arm. She denies any nausea or vomiting, diaphoresis, shortness of breath. She looks to be in no discomfort and is cracking jokes with the staff. Onset: Unknown/Unsure Improves with: Reports: Other (Moving her left arm seems to make it worse) Associated Symptoms: Reports: No Other Symptoms. 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: Reports: Aspirin (EMS gave the patient four low-dose baby aspirin) Left Chest Pain Score (Numeric/FACES): 8 - Related Data Allergies Allergy/AdvReac Type Severity Reaction Status Date / Time No Known Allergies Allergy Verified 07/31/19 16:22 Home Meds: Home Meds Albuterol Sulfate [Proair Hfa] 1 - 2 puff INH Q4HR PRN 11/04/18 [History] Aspirin [Halfprin] 81 mg PO DAILY 11/04/18 [History] amLODIPine Besylate [Amlodipine Besylate] 5 mg PO BID 11/04/18 [History] atorvaSTATin Calcium [Lipitor] 20 mg PO DAILY 11/04/18 [History] carvediloL [Carvedilol] 1 tab PO BID 11/04/18 [History] Acetaminophen [Tylenol Extra Strength] 1,000 mg PO TID PRN 09/22/19 [History] Divalproex Sodium [Depakote] 125 mg PO TID 09/22/19 [History] Docusate Sodium 100 mg PO BID PRN 09/22/19 [History] Ferrous Sulfate 325 mg PO TID 09/22/19 [History] traMADol [Ultram] 25 mg PO BID PRN 09/22/19 [History] Albuterol/Ipratropium [DuoNeb 3.0-0.5 MG/3 ML] 3 ml INH QID PRN 10/27/19 [ History] Escitalopram Oxalate [Lexapro] 10 mg PO DAILY 10/27/19 [History] Fluticasone Propion/Salmeterol [Advair 250-50 Diskus] 1 inh INH BID 10/27/19 [ History] Furosemide [Lasix] 20 mg PO DAILY 10/27/19 [History] Past Medical History HEENT History: Reports: Impaired Vision Cardiovascular History: Reports: Hypertension, Other (See Below) Other Cardiovascular History: COD Respiratory History: Reports: Asthma Gastrointestinal History: Reports: Cholelithiasis Genitourinary History: Reports: Chronic Renal Insuffiency Other Genitourinary History: stage 4 kidney disease. 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 Social & Family History - Tobacco Use Smoking Status *Q: Never Smoker - Caffeine Use Caffeine Use: Reports: None - Recreational Drug Use Recreational Drug Use: No ED ROS GENERAL - Review of Systems Review Of Systems: See Below Constitutional: Denies: Fever, Chills HEENT: Reports: No Symptoms Respiratory: Denies: Shortness of Breath, Cough Cardiovascular: Reports: Chest Pain (Left anterior chest pain) GI/Abdominal: Reports: No Symptoms : Reports: No Symptoms Musculoskeletal: Reports: Other (Left shoulder is sore, worse with movement) Skin: Reports: No Symptoms Neurological: Reports: Confusion (Patient has dementia and chronic confusion) Psychiatric: Reports: No Symptoms ED EXAM, GENERAL - Physical Exam Exam: See Below Exam Limited By: No Limitations General Appearance: Alert, No Apparent Distress Eye Exam: Bilateral Eye: Normal Inspection Head: Atraumatic Neck: Supple, Non-Tender Respiratory/Chest: No Respiratory Distress, Wheezing (A few scattered expiratory wheezes), Other (Patient reacts with tenderness to palpation anywhere on the left side of the chest, movement of the left shoulder causes increased pain) Cardiovascular: Regular Rate, Rhythm GI/Abdominal: Soft, Non-Tender Neurological: Alert, Confused, Disoriented Psychiatric: Normal Affect, Normal Mood Skin Exam: Warm, Dry Course - Vital Signs Last Recorded V/S: Last Vital Signs Temp 97.5 F 10/27/19 00:55 Pulse 64 10/27/19 00:55 Resp 21 H 10/27/19 00:55 BP 143/56 H 10/27/19 00:55 Pulse Ox 93 L 10/27/19 00:55 - Orders/Labs/Meds Labs: Laboratory Tests 10/27/19 10/27/19 Range/Units 01:28 01:28 WBC 6.5 (4.5-11.0) K/uL RBC 2.61 L (3.30-5.50) M/uL Hgb 8.5 L (12.0-15.0) g/dL Hct 27.8 L (36.0-48.0) % MCV 107 H (80-98) fL MCH 33 H (27-31) pg MCHC 31 L (32-36) % Plt Count 144 L (150-400) K/uL Neut % (Auto) 62 (36-66) % Lymph % (Auto) 17 L (24-44) % Jack % (Auto) 13 H (2-6) % Eos % (Auto) 8 H (2-4) % Baso % (Auto) 1 (0-1) % Sodium 141 (140-148) mmol/L Potassium 4.1 (3.6-5.2) mmol/L Chloride 103 (100-108) mmol/L Carbon Dioxide 35 H (21-32) mmol/L Anion Gap 7.1 (5.0-14.0) mmol/L BUN 23 H (7-18) mg/dL Creatinine 1.3 H (0.6-1.0) mg/dL Est Cr Clr Drug Dosing 24.27 mL/min Estimated GFR (MDRD) 39 L (>60) Glucose 109 H (74-106) mg/dL Calcium 8.2 L (8.5-10.1) mg/dL Troponin I < 0.017 (0.000-0.056) ng/mL Meds: Medications Discontinued Medications Generic Name Dose Route Start Last Admin Trade Name Freq PRN Reason Stop Dose Admin Albuterol/Ipratropium 3 ml 10/27/19 01:39 10/27/19 01:53 Duoneb 3.0-0.5 Mg/3 Ml NEB 10/27/19 01:40 3 ml ONETIME ONE Administration - Re-Assessments/Exams Free Text/Narrative Re-Assessment/Exam: 10/27/19 01:25 EKG done by EMS was reviewed and shows no ST changes. She is in a sinus rhythm. A portable chest x-ray, CBC BMP and troponin will be obtained which are likely going to be reassuring. 10/27/19 01:41 Reviewed her past records and I sent this patient to [facility] a month ago because of escalating chest pain and after she left I received a phone call from her daughter somewhat upset that she was transferred because she is always complaining of chest pain. I am not sure why they decided to send her in again tonight. Chest x-ray looks stable. 10/27/19 01:43 White count is normal, hemoglobin 8.5 which is anemic but consistent with past readings over the past 4 to 6 months. 10/27/19 01:55 Troponin is 0, the rest of her CMP is consistent with past levels. Patient will be diagnosed with a chest wall pain and left shoulder pain, along with reactive airways. She was given a DuoNeb while awaiting lab results. Should be transported back to [facility] by her daughter. Departure - Departure Time of Disposition: 02:45 Disposition: Home, Self-Care 01 Clinical Impression: Chest wall pain Reactive airway disease Qualifiers: Asthma severity: moderate Asthma complication type: uncomplicated - Discharge Information Instructions: Nonspecific Chest Pain, Adult Referrals: PCP,None [Primary Care Provider] - Forms: ED Department Discharge Care Plan Goals: Continue current medications and recheck with your primary provider in the next week if not improving satisfactorily. Sepsis Event Note - Evaluation Sepsis Screening Result: No Definite Risk - Focused Exam Date Exam was Performed: 10/30/19 Time Exam was Performed: 17:18
[2019-10-27] MEDS ORDERED: Albuterol/Ipratropium 3.0-0.5 MG/3 ML Neb Soln NEB ONE (01:39)
--- NOTE | 2019-10-27 10:00 | CR ---
CHEST: Portable 10/27/2019 at 1:32 AM CLINICAL HISTORY:Chest pain COMPARISON:07/31/2019 FINDINGS: The heart is enlarged. Pulmonary vascular areas cephalized. Patient a small bibasal effusions. Mild generalized prominence of lung markings. Some of this chronic. IMPRESSION: Cardiomegaly with mild vascular cephalization and some minimal effusions. This is suspicious for mild CHF. Clinical correlation necessary
== END 2019-10-27 02:45 | disposition home or self-care (01) ==
LOC: JP.ED 00:44
DX: J45.909 Unspecified asthma, uncomplicated (principal); I12.9 Hypertensive chronic kidney disease with stage 1 through stage 4 chronic kidney disease, or unspecified chronic kidney disease; N18.9 Chronic kidney disease, unspecified; G30.9 Alzheimer's disease, unspecified; F02.80 Dementia in other diseases classified elsewhere, unspecified severity, without behavioral disturbance, psychotic disturbance, mood disturbance, and anxiety; E66.9 Obesity, unspecified; Z68.35 Body mass index [BMI] 35.0-35.9, adult
CPT/HCPCS: 36415; 71045; 71045-26; 80048; 84484; 85025; 94640; 99284; 99285-25; J7620-GY